=== PATIENT | male | born 1940 | race African-American/Black ===

== ENCOUNTER → 2018-05-17 09:34 | Outpatient (CLI) | payer MEDICARE ==
[2013-06-14 22:21] VITALS: BMI 23.6
[~2018-05-17 09:34] MED LIST: DYRENIUM50 MG
== END | disposition home or self-care (01) ==
LOC: D.RT 04-21 10:00 → D.RAD 04-21 11:00 → D.LAB 04-21 11:15 → D.RT 05-02 10:00 → D.RAD 05-02 11:00 → D.LAB 05-02 11:15 → D.RT 09:34
DX: R06.09 Other forms of dyspnea (principal); J44.9 Chronic obstructive pulmonary disease, unspecified